=== PATIENT | female | born 1945 | race Caucasian/White ===

== ENCOUNTER 2016-11-10 17:27 | Observation (INO) ==
[2016-11-10] MEDS ORDERED: 0.9 % Sodium Chloride 1,000 ML IVC ONE (18:19)
--- NOTE | 2016-11-10 18:47 | Emergency Department Note ---
Addendum entered and electronically signed by Alec Fleming DO 11/10/16 18: 59: EKG shows sinus rhythm with occasional PVCs. Patient has ventricular is 64 bpm. MN interval 166. QRS 87. QTC 465. Patient has nonspecific elevations at V2 and V3. No previous EKG for comparison at this time. No specific T-wave changes. Original Note: Disposition Clinical Impression: Near syncope, Weakness Disposition: Still a Patient Condition: Good Referrals: Camille Joiner MD [Primary Care Provider] - Dizziness HPI - General Chief Complaint: ED Dizziness Stated Complaint: Dizziness/weakness Time Seen by Provider: 11/10/16 17:50 Source: patient Limitations: no limitations Nursing Notes Reviewed: Yes Vital Signs Reviewed: Yes - History of Present Illness HPI Narrative: Patient here for evaluation of dizziness and weakness. Patient states this afternoon she felt like she was going to pass out with her vision going black and white in her legs getting weak. Patient states she was recently admitted to [facility] and then further acknowledged that she had been admitted to [facility]. Admission to [facility] was 3 weeks ago and was for pneumonia and dehydration per patient. Admission to [facility] was for dizziness and weakness however she states that they did not do anything and has limited insight into this visit. Records requested. - Related Data Home Medications Medication Instructions Recorded Confirmed Albuterol Neb [Proventil Neb] 2.5 mg IH Q6H PRN 11/10/16 11/10/16 Albuterol Sulfate [Albuterol 1 puff IH Q6H PRN 11/10/16 11/10/16 Inhaler] Calcium Carbonate/Vitamin D3 1 each PO DAILY 11/10/16 11/10/16 [Calcium 600-Vit D3 400 Tablet] Cetirizine HCl [Zyrtec] 10 mg PO DAILY 11/10/16 11/10/16 Insulin ASPART [NovoLOG] 0 unit SQ ACHS 11/10/16 11/10/16 Insulin Degludec [Tresiba 80 unit SQ DAILY 11/10/16 11/10/16 Flextouch U-200] Insulin Glargine,Hum.rec.anlog 40 unit SQ HS 11/10/16 11/10/16 [Lantus Solostar] Isosorbide MONOnitrate (24 HR) 15 mg PO QAM 11/10/16 11/10/16 [Imdur] Levothyroxine [Synthroid] 25 mcg PO QAM 11/10/16 11/10/16 Lisinopril [Zestril] 40 mg PO DAILY 11/10/16 11/10/16 Magnesium Oxide [Mag-Ox] 400 mg PO BID 11/10/16 11/10/16 Nitroglycerin [Nitrostat] 0.4 mg SL Q5M PRN 11/10/16 11/10/16 Omeprazole [PriLOSEC] 20 mg PO DAILY 11/10/16 11/10/16 Ondansetron HCl [Zofran] 4 mg PO Q8H PRN 11/10/16 11/10/16 Polyethylene Glycol 3350 17 gm PO DAILY PRN 11/10/16 11/10/16 [Smoothlax] Pravastatin Sodium [Pravachol] 20 mg PO QPM 11/10/16 11/10/16 Sotalol [Betapace] 80 mg PO Q12HR 11/10/16 11/10/16 Tizanidine HCl 4 mg PO 11/10/16 Tramadol HCl [Ultram] 100 mg PO Q6H PRN 11/10/16 11/10/16 Trazodone HCl 100 mg PO HS 11/10/16 11/10/16 Triamcinolone Acet 0.1% CRM 1 appl TP BID 11/10/16 11/10/16 [Kenalog] Ursodiol [Radha Forte] 500 mg PO BID 11/10/16 11/10/16 Allergies Allergy/AdvReac Type Severity Reaction Status Date / Time amlodipine [From Norvasc] Allergy Anaphylaxis Verified 11/10/16 17:36 Amoxicillin Allergy Anaphylaxis Verified 11/10/16 17:32 Erythromycin Base Allergy Anaphylaxis Verified 11/10/16 17:36 liraglutide [From Victoza] Allergy Swelling Verified 11/10/16 17:36 of Lip/Tongue/Throat Penicillins Allergy Anaphylaxis Verified 11/10/16 17:32 pioglitazone [From Actos] Allergy Anaphylaxis Verified 11/10/16 17:36 Rosiglitazone [From Avandia] Allergy Swelling Verified 11/10/16 17:36 of Lip/Tongue/Throat venlafaxine [From Effexor] Allergy Swelling Verified 11/10/16 17:36 of Lip/Tongue/Throat morphine AdvReac Vomiting Verified 11/10/16 17:36 sulfamethoxazole AdvReac Itching Verified 11/10/16 17:36 [From Bactrim] trimethoprim [From Bactrim] AdvReac Itching Verified 11/10/16 17:36 Constitutional: Reports: weakness. Denies: fever, chills Cardiovascular: Denies: chest pain Respiratory: Reports: cough (Describes clear sputum), dyspnea (Occasionally) Gastrointestinal: Reports: nausea. Denies: abdominal pain, vomiting Genitourinary: Denies: urgency, dysuria, frequency Musculoskeletal: Reports: other (Swelling of the lower extremities). Denies: back pain, neck pain Integumentary: Denies: rash, abrasion, lesions Neurological: Denies: headache Endocrine: Reports: fatigue Past Medical History - Past Medical History Medical history: Reports: atrial fibrillation, cirrhosis, diabetes, GERD, hyperlipidemia, hypertension, thyroid disease Psychiatric history: Reports: no psych history - Social History Smoking Status: Never smoker Smokeless Tobacco Status: No Alcohol use: Reports: none Drug use: Reports: none Physical Exam Mental slowness - General Limitations: no limitations General appearance: alert, in no apparent distress - Head Head exam: atraumatic, normocephalic - Eye Eye exam: Present: normal appearance - ENT ENT exam: normal exam, normal oropharynx - Neck Neck exam: Present: normal inspection, full ROM - Chest Chest inspection: Present: normal inspection, symmetric chest wall rise. Absent : tenderness - Respiratory Respiratory exam: Present: normal lung sounds bilaterally, other (Rales bilaterally). Absent: respiratory distress - Cardiovascular Cardiovascular exam: Present: regular rate, normal rhythm - Abdominal Exam Abdominal exam: Present: soft, Non-Tender - Extremities Exam Extremities exam: Present: normal inspection, pedal edema (+3 bilaterally) - Back Exam Back exam: Present: normal inspection. Absent: CVA tenderness (R), CVA tenderness (L) - Neurological Exam Neurological exam: Present: alert, oriented X3, CN II-XII intact. Absent: motor sensory deficit - Psychiatric Psychiatric exam: Present: flat affect - Skin Skin exam: Present: warm, dry, other (Chronic lower extremity changes) Course Course Narrative: Patient will be evaluated for weakness and near syncope. Patient does have a flat affect and concern for hypothyroid features. Thyroid will be evaluated. Patient will be signed out to Dr. Young and Dr. Al. Vital Signs Temperature 97.6 F 11/10/16 17:36 Pulse Rate 65 11/10/16 17:36 Respiratory Rate 16 11/10/16 17:36 Blood Pressure 79/53 11/10/16 17:36 O2 Sat by Pulse Oximetry 92 11/10/16 17:36 Temperature 97.6 F 11/10/16 17:36 Pulse Rate 61 11/10/16 18:45 Respiratory Rate 16 11/10/16 18:45 Blood Pressure 142/47 11/10/16 18:45 O2 Sat by Pulse Oximetry 96 11/10/16 18:45 Oxygen Delivery Oxygen Delivery Nasal Cannula Dizziness - Lab Data Result diagrams: 11/10/16 17:55 11/10/16 17:55 Lab Results 11/10/16 11/10/16 11/10/16 Range/Units 17:55 17:55 17:55 WBC 4.6 (4.3-11.1) K/mcL RBC 4.36 (3.82-4.97) M/mcL Hgb 11.7 (11.5-15.4) g/dL Hct 36.7 (35.3-44.9) % MCV 84.2 (83.0-100.0) fL MCH 26.8 L (28.0-33.3) pg MCHC 31.9 (31.6-35.5) g/dL RDW 17.2 H (11.5-14.5) % Plt Count 138 L (140-400) K/mcL MPV 11.2 (9.4-12.4) fL Immature Gran % 0.4 (0-4) % Seg Neutrophils % 50.7 % Lymphocytes % 32.6 % Monocytes % 14.7 % Eosinophils % 0.9 % Basophils % 0.7 % Neutrophils # 2.3 (1.6-8.9) K/mcL Lymphocytes # 1.5 (0.6-4.6) K/mcL Monocytes # 0.7 (0.0-1.3) K/mcL Eosinophils # 0.0 (0.0-0.6) K/mcL Basophils # 0.0 (0.0-0.2) K/mcL Sodium 136 (136-145) mEq/L Potassium 4.1 (3.5-4.5) mEq/L Chloride 103 (98-109) mEq/L Carbon Dioxide 25 (19-29) mEq/L BUN 18 (7-20) mg/dL Creatinine 1.26 H (0.57-1.11) mg/dL Est GFR ( Amer) 51 L (> 60) Est GFR (Non-Af Amer) 42 L (> 60) BUN/Creatinine Ratio 14 (6-26) Glucose 280 H (70-99) mg/dL Calculated Osmolality 294 (280-300) Calcium 9.7 (8.6-10.8) mg/dL Total Bilirubin (0.2-1.2) mg/dL Direct Bilirubin (0.0-0.5) mg/dL Indirect Bilirubin (0.0-1.2) mg/dL AST (5-34) Units/L ALT (0-55) Units/L Alkaline Phosphatase (38-126) Units/L Ammonia (18-72) mcmol/L Troponin I 0.00 (0-0.03) ng/mL B-Natriuretic Peptide (0-100) pg/mL Serum Total Protein (6.0-8.3) g/dL Albumin (3.5-5.0) g/dL Globulin (2.4-3.5) g/dL Albumin/Globulin Ratio (1.1-2.2) TSH 2.762 (0.350-4.840) mcIU/mL 11/10/16 11/10/16 11/10/16 Range/Units 17:55 19:55 19:55 WBC (4.3-11.1) K/mcL RBC (3.82-4.97) M/mcL Hgb (11.5-15.4) g/dL Hct (35.3-44.9) % MCV (83.0-100.0) fL MCH (28.0-33.3) pg MCHC (31.6-35.5) g/dL RDW (11.5-14.5) % Plt Count (140-400) K/mcL MPV (9.4-12.4) fL Immature Gran % (0-4) % Seg Neutrophils % % Lymphocytes % % Monocytes % % Eosinophils % % Basophils % % Neutrophils # (1.6-8.9) K/mcL Lymphocytes # (0.6-4.6) K/mcL Monocytes # (0.0-1.3) K/mcL Eosinophils # (0.0-0.6) K/mcL Basophils # (0.0-0.2) K/mcL Sodium (136-145) mEq/L Potassium (3.5-4.5) mEq/L Chloride (98-109) mEq/L Carbon Dioxide (19-29) mEq/L BUN (7-20) mg/dL Creatinine (0.57-1.11) mg/dL Est GFR ( Amer) (> 60) Est GFR (Non-Af Amer) (> 60) BUN/Creatinine Ratio (6-26) Glucose (70-99) mg/dL Calculated Osmolality (280-300) Calcium (8.6-10.8) mg/dL Total Bilirubin 0.5 (0.2-1.2) mg/dL Direct Bilirubin 0.3 (0.0-0.5) mg/dL Indirect Bilirubin 0.2 (0.0-1.2) mg/dL AST 27 (5-34) Units/L ALT 18 (0-55) Units/L Alkaline Phosphatase 128 H (38-126) Units/L Ammonia 38 (18-72) mcmol/L Troponin I (0-0.03) ng/mL B-Natriuretic Peptide 122 H (0-100) pg/mL Serum Total Protein 7.2 (6.0-8.3) g/dL Albumin 2.7 L (3.5-5.0) g/dL Globulin 4.5 H (2.4-3.5) g/dL Albumin/Globulin Ratio 0.6 L (1.1-2.2) TSH (0.350-4.840) mcIU/mL Attestation Statement - Attestation Attestation: I, Damaso Al, examined this patient and my medical decision-making was reviewed with the TOBACCO DIPPER/PA/Advanced Practice Nurse/Resident Physician. I agree with the documented findings, disposition and treatment plan as described except to the extent set forth below. 71-year-old female presents with concerns of weakness and lightheadedness over the past 2 weeks. Patient stated her symptoms started acutely 4 hours prior to arrival however family states patient has had blood pressures in the 80s over the past 2 weeks and was admitted at [facility] last week for similar symptoms. Family reported slurred speech yesterday but denies focal neurologic deficits. Family and patient denies recent medication changes. Patient does have a history of thyroid disease and takes thyroid replacement. Patient was hypotensive on her initial arrival. Lungs were clear to auscultation bilaterally. Patient had no tenderness to palpation of her abdomen. No history of dysuria. She had a mild headache in the emergency department denies fever, chills, nausea, vomiting. No recent trauma. Records from [facility] will be obtained. Patient will be evaluated for weakness and possible ACS versus medication reaction. Patient will likely be admitted to the hospital. Records were obtained from [facility] report similar presentation today. Patient had initial presentation with blood pressure at that time of 72/62 which improved after IV fluids. Patient had a previous hemoglobin of 10.9, with blood cell count of 5.8, creatinine 1.13, negative troponin, magnesium level I.6. Discharge summary from [facility] shows diagnosis of near syncope with most likely etiology of hypovolemic state due to overdiuresis and under hydration which was evident by her quick response to IV fluids at the time. Carotid artery study showed 40-59% stenosis of the left ICA. BP at discharge was 139/76. Blood cultures were negative after 5 days. Urine culture was negative after 48 hours
[2016-11-10 19:15] LABS: Basophils % 0.7 %; Eosinophils % 0.9 %; Hematocrit 36.7 % (35.3-44.9); Hemoglobin 11.7 g/dL (11.5-15.4); Immature Granulocytes % 0.4 % (0-4); Lymphocytes # 1.5 K/mcL (0.6-4.6); Lymphocytes % 32.6 %; Mean Corpuscular HGB Conc 31.9 g/dL (31.6-35.5); Mean Corpuscular Hemoglobin 26.8 pg (28.0-33.3); Mean Corpuscular Volume 84.2 fL (83.0-100.0); Mean Platelet Volume 11.2 fL (9.4-12.4); Monocytes # 0.7 K/mcL (0.0-1.3); Monocytes % 14.7 %; Neutrophils # 2.3 K/mcL (1.6-8.9); Platelet Count 138 K/mcL (140-400); Red Blood Count 4.36 M/mcL (3.82-4.97); Red Cell Distribution Width 17.2 % (11.5-14.5); Segmented Neutrophils % 50.7 %
[2016-11-10 19:23] LABS: Calcium 9.7 mg/dL (8.6-10.8); Potassium 4.1 mEq/L (3.5-4.5)
[2016-11-10 19:45] LABS: Thyroid Stimulating Hormone 2.762 mcIU/mL (0.350-4.840)
[2016-11-10 20:17] LABS: Albumin 2.7 g/dL (3.5-5.0); Albumin/Globulin Ratio 0.6 (1.1-2.2); Bilirubin,Direct 0.3 mg/dL (0.0-0.5); Bilirubin,Indirect 0.2 mg/dL (0.0-1.2); Bilirubin,Total 0.5 mg/dL (0.2-1.2); Globulin 4.5 g/dL (2.4-3.5); Total Protein 7.2 g/dL (6.0-8.3)
[2016-11-10 20:34] LABS: Bilirubin,Urine Negative (Negative); Blood,Urine Negative (Negative); Clarity,Urine Clear (Clear); Color,Urine Yellow (Yellow); Glucose,Urine (UA) >=1000 mg/dL (Normal); Ketones,Urine Negative (Negative); Leukocyte Esterase,Urine Negative (Negative); Nitrite,Urine Negative (Negative); Protein,Urine 30 mg/dL (Neg-Trace); Specific Gravity,Urine 1.027 (1.010-1.025); Urobilinogen,Urine Normal (Normal)
[2016-11-10 20:35] LABS: Bacteria,Urine None Seen per hpf (None-Few); RBC,Urine 0-3 per hpf (0-3); Squamous Epithelial Cell,Urine Many per lpf (None-Few)
--- NOTE | 2016-11-10 21:05 | Emergency Department Note ---
Disposition Clinical Impression: Near syncope, Weakness Disposition: Admitted As Inpatient Condition: Good Time of Disposition: 21:05 General Adult HPI - General Chief complaint: ED Dizziness Stated complaint: Dizziness/weakness Time Seen by Provider: 11/10/16 17:50 Source: patient Limitations: no limitations - History of Present Illness Pain Scale: 3 - Related Data Home Medications Medication Instructions Recorded Confirmed Albuterol Neb [Proventil Neb] 2.5 mg IH Q6H PRN 11/10/16 11/10/16 Albuterol Sulfate [Albuterol 1 puff IH Q6H PRN 11/10/16 11/10/16 Inhaler] Calcium Carbonate/Vitamin D3 1 each PO DAILY 11/10/16 11/10/16 [Calcium 600-Vit D3 400 Tablet] Cetirizine HCl [Zyrtec] 10 mg PO DAILY 11/10/16 11/10/16 Insulin ASPART [NovoLOG] 0 unit SQ ACHS 11/10/16 11/10/16 Insulin Degludec [Tresiba 80 unit SQ DAILY 11/10/16 11/10/16 Flextouch U-200] Insulin Glargine,Hum.rec.anlog 40 unit SQ HS 11/10/16 11/10/16 [Lantus Solostar] Levothyroxine [Synthroid] 25 mcg PO QAM 11/10/16 11/10/16 Magnesium Oxide [Mag-Ox] 400 mg PO BID 11/10/16 11/10/16 Nitroglycerin [Nitrostat] 0.4 mg SL Q5M PRN 11/10/16 11/10/16 Omeprazole [PriLOSEC] 20 mg PO DAILY 11/10/16 11/10/16 Ondansetron HCl [Zofran] 4 mg PO Q8H PRN 11/10/16 11/10/16 Polyethylene Glycol 3350 17 gm PO DAILY PRN 11/10/16 11/10/16 [Smoothlax] Pravastatin Sodium [Pravachol] 20 mg PO QPM 11/10/16 11/10/16 Sotalol [Betapace] 80 mg PO Q12HR 11/10/16 11/10/16 Trazodone HCl 100 mg PO HS 11/10/16 11/10/16 Triamcinolone Acet 0.1% CRM 1 appl TP BID 11/10/16 11/10/16 [Kenalog] Ursodiol [Radha Forte] 500 mg PO BID 11/10/16 11/10/16 Allergies Allergy/AdvReac Type Severity Reaction Status Date / Time amlodipine [From Norvasc] Allergy Anaphylaxis Verified 11/10/16 17:36 Amoxicillin Allergy Anaphylaxis Verified 11/10/16 17:32 Erythromycin Base Allergy Anaphylaxis Verified 11/10/16 17:36 liraglutide [From Victoza] Allergy Swelling Verified 11/10/16 17:36 of Lip/Tongue/Throat Penicillins Allergy Anaphylaxis Verified 11/10/16 17:32 pioglitazone [From Actos] Allergy Anaphylaxis Verified 11/10/16 17:36 Rosiglitazone [From Avandia] Allergy Swelling Verified 11/10/16 17:36 of Lip/Tongue/Throat venlafaxine [From Effexor] Allergy Swelling Verified 11/10/16 17:36 of Lip/Tongue/Throat morphine AdvReac Vomiting Verified 11/10/16 17:36 sulfamethoxazole AdvReac Itching Verified 11/10/16 17:36 [From Bactrim] trimethoprim [From Bactrim] AdvReac Itching Verified 11/10/16 17:36 Constitutional: Reports: weakness. Denies: fever, chills Cardiovascular: Denies: chest pain Respiratory: Reports: cough (Describes clear sputum), dyspnea (Occasionally) Gastrointestinal: Reports: nausea. Denies: abdominal pain, vomiting Genitourinary: Denies: urgency, dysuria, frequency Musculoskeletal: Reports: other (Swelling of the lower extremities). Denies: back pain, neck pain Integumentary: Denies: rash, abrasion, lesions Neurological: Denies: headache Endocrine: Reports: fatigue Past Medical History - Past Medical History Medical history: Reports: atrial fibrillation, cirrhosis, diabetes, GERD, hyperlipidemia, hypertension, thyroid disease Psychiatric history: Reports: no psych history - Social History Smoking Status: Never smoker Smokeless Tobacco Status: No Alcohol use: Reports: none Drug use: Reports: none Physical Exam - General Limitations: no limitations General appearance: alert, in no apparent distress Course - Reevaluation(s) Reevaluation #1: Patient taken in signout from Dr. Fleming. Blood pressure improved after 1 L of normal saline. It has been running 100 systolic for the last few readings. We will start her on maintenance fluids. She still feels somewhat lightheaded, but is improved from arrival. No signs of infection. No renal failure. CT of the head, chest x-ray were normal. Urinalysis were normal. No signs of ischemia on EKG. Records obtained from [facility]. Patient accepted to hospitalist service by Dr. Burdick for near syncope obs. Time: 21:05 Vital Signs Temperature 97.6 F 11/10/16 17:36 Pulse Rate 65 11/10/16 17:36 Respiratory Rate 16 11/10/16 17:36 Blood Pressure 79/53 11/10/16 17:36 O2 Sat by Pulse Oximetry 92 11/10/16 17:36 Temperature 98.0 F 11/12/16 07:15 Pulse Rate 63 11/12/16 07:15 Respiratory Rate 17 11/12/16 07:15 Blood Pressure 105/68 11/12/16 07:15 O2 Sat by Pulse Oximetry 94 11/12/16 07:15 Oxygen Delivery Oxygen Delivery Nasal Cannula Medical Decision Making - Lab Data Result diagrams: 11/12/16 03:43 11/12/16 03:43 Lab Results 11/10/16 11/10/16 11/10/16 Range/Units 17:55 17:55 17:55 WBC 4.6 (4.3-11.1) K/mcL RBC 4.36 (3.82-4.97) M/mcL Hgb 11.7 (11.5-15.4) g/dL Hct 36.7 (35.3-44.9) % MCV 84.2 (83.0-100.0) fL MCH 26.8 L (28.0-33.3) pg MCHC 31.9 (31.6-35.5) g/dL RDW 17.2 H (11.5-14.5) % Plt Count 138 L (140-400) K/mcL MPV 11.2 (9.4-12.4) fL Immature Gran % 0.4 (0-4) % Seg Neutrophils % 50.7 % Lymphocytes % 32.6 % Monocytes % 14.7 % Eosinophils % 0.9 % Basophils % 0.7 % Neutrophils # 2.3 (1.6-8.9) K/mcL Lymphocytes # 1.5 (0.6-4.6) K/mcL Monocytes # 0.7 (0.0-1.3) K/mcL Eosinophils # 0.0 (0.0-0.6) K/mcL Basophils # 0.0 (0.0-0.2) K/mcL Sodium 136 (136-145) mEq/L Potassium 4.1 (3.5-4.5) mEq/L Chloride 103 (98-109) mEq/L Carbon Dioxide 25 (19-29) mEq/L BUN 18 (7-20) mg/dL Creatinine 1.26 H (0.57-1.11) mg/dL Est GFR ( Amer) 51 L (> 60) Est GFR (Non-Af Amer) 42 L (> 60) BUN/Creatinine Ratio 14 (6-26) Glucose 280 H (70-99) mg/dL Calculated Osmolality 294 (280-300) Calcium 9.7 (8.6-10.8) mg/dL Total Bilirubin (0.2-1.2) mg/dL Direct Bilirubin (0.0-0.5) mg/dL Indirect Bilirubin (0.0-1.2) mg/dL AST (5-34) Units/L ALT (0-55) Units/L Alkaline Phosphatase (38-126) Units/L Ammonia (18-72) mcmol/L Troponin I 0.00 (0-0.03) ng/mL B-Natriuretic Peptide (0-100) pg/mL Serum Total Protein (6.0-8.3) g/dL Albumin (3.5-5.0) g/dL Globulin (2.4-3.5) g/dL Albumin/Globulin Ratio (1.1-2.2) TSH 2.762 (0.350-4.840) mcIU/mL Urine Color (Yellow) Urine Clarity (Clear) Urine pH (5.0-8.0) pH Units Ur Specific [place] (1.010-1.025) Urine Protein (Neg-Trace) mg/dL Urine Glucose (UA) (Normal) mg/dL Urine Ketones (Negative) mg/dL Urine Blood (Negative) Urine Nitrite (Negative) Urine Bilirubin (Negative) Urine Urobilinogen (Normal) mg/dL Ur Leukocyte Esterase (Negative) Urine Microscopic RBC (0-3) per hpf Urine Microscopic WBC (0-3) per hpf Ur Squamous Epith Cells (None-Few) per lpf Urine Bacteria (None-Few) per hpf Hyaline Casts Ur Culture Indicated? (NO) 11/10/16 11/10/16 11/10/16 Range/Units 17:55 19:40 19:55 WBC (4.3-11.1) K/mcL RBC (3.82-4.97) M/mcL Hgb (11.5-15.4) g/dL Hct (35.3-44.9) % MCV (83.0-100.0) fL MCH (28.0-33.3) pg MCHC (31.6-35.5) g/dL RDW (11.5-14.5) % Plt Count (140-400) K/mcL MPV (9.4-12.4) fL Immature Gran % (0-4) % Seg Neutrophils % % Lymphocytes % % Monocytes % % Eosinophils % % Basophils % % Neutrophils # (1.6-8.9) K/mcL Lymphocytes # (0.6-4.6) K/mcL Monocytes # (0.0-1.3) K/mcL Eosinophils # (0.0-0.6) K/mcL Basophils # (0.0-0.2) K/mcL Sodium (136-145) mEq/L Potassium (3.5-4.5) mEq/L Chloride (98-109) mEq/L Carbon Dioxide (19-29) mEq/L BUN (7-20) mg/dL Creatinine (0.57-1.11) mg/dL Est GFR ( Amer) (> 60) Est GFR (Non-Af Amer) (> 60) BUN/Creatinine Ratio (6-26) Glucose (70-99) mg/dL Calculated Osmolality (280-300) Calcium (8.6-10.8) mg/dL Total Bilirubin 0.5 (0.2-1.2) mg/dL Direct Bilirubin 0.3 (0.0-0.5) mg/dL Indirect Bilirubin 0.2 (0.0-1.2) mg/dL AST 27 (5-34) Units/L ALT 18 (0-55) Units/L Alkaline Phosphatase 128 H (38-126) Units/L Ammonia (18-72) mcmol/L Troponin I (0-0.03) ng/mL B-Natriuretic Peptide 122 H (0-100) pg/mL Serum Total Protein 7.2 (6.0-8.3) g/dL Albumin 2.7 L (3.5-5.0) g/dL Globulin 4.5 H (2.4-3.5) g/dL Albumin/Globulin Ratio 0.6 L (1.1-2.2) TSH (0.350-4.840) mcIU/mL Urine Color Yellow (Yellow) Urine Clarity Clear (Clear) Urine pH 6.0 (5.0-8.0) pH Units Ur Specific [place] 1.027 H (1.010-1.025) Urine Protein 30 H (Neg-Trace) mg/dL Urine Glucose (UA) >=1000 H (Normal) mg/dL Urine Ketones Negative (Negative) mg/dL Urine Blood Negative (Negative) Urine Nitrite Negative (Negative) Urine Bilirubin Negative (Negative) Urine Urobilinogen Normal (Normal) mg/dL Ur Leukocyte Esterase Negative (Negative) Urine Microscopic RBC 0-3 (0-3) per hpf Urine Microscopic WBC 5-15 H (0-3) per hpf Ur Squamous Epith Cells Many H (None-Few) per lpf Urine Bacteria None Seen (None-Few) per hpf Hyaline Casts Test Not Performed Ur Culture Indicated? YES A (NO) 11/10/16 Range/Units 19:55 WBC (4.3-11.1) K/mcL RBC (3.82-4.97) M/mcL Hgb (11.5-15.4) g/dL Hct (35.3-44.9) % MCV (83.0-100.0) fL MCH (28.0-33.3) pg MCHC (31.6-35.5) g/dL RDW (11.5-14.5) % Plt Count (140-400) K/mcL MPV (9.4-12.4) fL Immature Gran % (0-4) % Seg Neutrophils % % Lymphocytes % % Monocytes % % Eosinophils % % Basophils % % Neutrophils # (1.6-8.9) K/mcL Lymphocytes # (0.6-4.6) K/mcL Monocytes # (0.0-1.3) K/mcL Eosinophils # (0.0-0.6) K/mcL Basophils # (0.0-0.2) K/mcL Sodium (136-145) mEq/L Potassium (3.5-4.5) mEq/L Chloride (98-109) mEq/L Carbon Dioxide (19-29) mEq/L BUN (7-20) mg/dL Creatinine (0.57-1.11) mg/dL Est GFR ( Amer) (> 60) Est GFR (Non-Af Amer) (> 60) BUN/Creatinine Ratio (6-26) Glucose (70-99) mg/dL Calculated Osmolality (280-300) Calcium (8.6-10.8) mg/dL Total Bilirubin (0.2-1.2) mg/dL Direct Bilirubin (0.0-0.5) mg/dL Indirect Bilirubin (0.0-1.2) mg/dL AST (5-34) Units/L ALT (0-55) Units/L Alkaline Phosphatase (38-126) Units/L Ammonia 38 (18-72) mcmol/L Troponin I (0-0.03) ng/mL B-Natriuretic Peptide (0-100) pg/mL Serum Total Protein (6.0-8.3) g/dL Albumin (3.5-5.0) g/dL Globulin (2.4-3.5) g/dL Albumin/Globulin Ratio (1.1-2.2) TSH (0.350-4.840) mcIU/mL Urine Color (Yellow) Urine Clarity (Clear) Urine pH (5.0-8.0) pH Units Ur Specific [place] (1.010-1.025) Urine Protein (Neg-Trace) mg/dL Urine Glucose (UA) (Normal) mg/dL Urine Ketones (Negative) mg/dL Urine Blood (Negative) Urine Nitrite (Negative) Urine Bilirubin (Negative) Urine Urobilinogen (Normal) mg/dL Ur Leukocyte Esterase (Negative) Urine Microscopic RBC (0-3) per hpf Urine Microscopic WBC (0-3) per hpf Ur Squamous Epith Cells (None-Few) per lpf Urine Bacteria (None-Few) per hpf Hyaline Casts Ur Culture Indicated? (NO) Attestation Statement - Attestation Attestation: I examined this patient and my medical decision-making was reviewed with the [employer] STORE MANAGER/PA/Advanced Practice Nurse/Resident Physician. I agree with the documented findings, disposition and treatment plan as described except to the extent set forth below. 71 yo female received in signout. Pt blood pressure improved after IVFs. Pt admitted for near syncope.
[2016-11-11] MEDS ORDERED: Naloxone 0.4 MG/ML INJ IVP PRN (00:21)
[2016-11-11] MEDS ORDERED: Albuterol 2.5 MG/3 ML NEBULIZER IH PRN (00:22)
--- NOTE | 2016-11-11 00:33 | Internal Med History&Physical ---
<Michael Medrano - Last Filed: 11/11/16 00:40> Date of Encounter: 11/11/16 Time of Encounter: 00:30 Assessment and Plan (1) Dehydration Current visit: Yes Status: Acute Blood pressure was 80s over 50s on presentation, responded well to 1 L of fluid. Patient's symptoms are resolved this time. Orthostatics were negative however there were performed after the patient received a liter bolus. Likely medication related as well as related to significant glucosuria. We will hold the patient's antihypertensives at this time and continue to monitor the patient 's blood pressure and symptoms.. (2) Type 2 diabetes mellitus Current visit: Yes Status: Acute Patient's blood sugar was significantly elevated on presentation and patient had greater than 1000 glucose in her urine. This could be contributing to her dehydration. We will check an A1c in the morning. Patient has been placed on twice a day Levemir which she takes at home as well as 10 units with meals and a high-dose sliding scale. Adjust insulin regimen based on blood sugars. Qualifiers: Diabetes mellitus complication status: with hyperglycemia Diabetes mellitus buttermaker helper insulin use: with prison use Qualified Code(s): E11.65 - Type 2 diabetes mellitus with hyperglycemia; Z79.4 - retirement (current) use of insulin (3) Hypothyroidism Current visit: Yes Status: Acute Continue Synthroid. Qualifiers: Hypothyroidism type: unspecified Qualified Code(s): E03.9 - Hypothyroidism , unspecified (4) Hypertension Current visit: Yes Status: Acute Patient reports chronic hypertension however patient's blood pressure was low on presentation. We will hold antihypertensives as discussed above. Qualifiers: Hypertension type: essential hypertension Qualified Code(s): I10 - Essential (primary) hypertension (5) Hyperlipidemia Current visit: Yes Status: Acute Continue statin. Qualifiers: Hyperlipidemia type: unspecified Qualified Code(s): E78.5 - Hyperlipidemia , unspecified (6) Atrial fibrillation Current visit: Yes Status: Acute Patient is currently rhythm controlled with sotalol. EKG reveals normal sinus rhythm with a rate in the 70s. 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 Patient is not on any anticoagulation and she states this is due to recurrent nosebleeds. Qualifiers: Atrial fibrillation type: unspecified Qualified Code(s): I48.91 - Unspecified atrial fibrillation (7) DVT prophylaxis Current visit: Yes Status: Acute Patient is low risk for DVT, DVT prophylaxis is not indicated at this time. Internal Medicine - H&P: HPI Chief complaint: Dizziness/presyncope Admitted From: Emergency Dept Plans for Post Hospital Care: Home History of present illness: Ms. Mcgovern is a 71 year old female with history of hypertension, type 2 diabetes presents with dizziness and presyncopal symptoms. Patient states that she developed dizziness around 1 PM this afternoon. She describes this as a lightheadedness. She states a lot of the symptoms she had episodes where things went dark and she felt like she was given a pass out. The patient states that she never did actually pass out. Patient states that she had similar symptoms 4 weeks ago for which she went to [facility] and was admitted for hypotension and dehydration. Patient states that her Lasix was stopped at that time. Since that admission the patient has complained of generalized weakness but did not have dizziness or presyncopal symptoms until today. Patient states that she has lymphedema and her legs are chronically swollen. She denies any recent fever, chills, chest pain, shortness of breath, abdominal pain, nausea, vomiting, diarrhea. Past Med Surg Social Fam HX - Past Medical History Medical history: atrial fibrillation, cirrhosis, diabetes, GERD, hyperlipidemia , hypertension, thyroid disease Psychiatric history: no psych history - Past Surgical History Surgical History: cholecystectomy, other - Social History Smoking Status: Never smoker Smokeless Tobacco Status: No Alcohol use: none Drug use: none - Family History Mother Adopted: [place]: ELLIS Family Member Ethnicity: Non- Living Status: Age at : 89 Cause of : HEART PROBLEMS Hx Family Cardiac Disorders: Yes Hx Family Respiratory Disorders: No Hx Family Cancer: No Hx Family GI Disorders: Yes Hx Family Genitourinary Disorders: No Hx Family Endocrine Disorder: No Hx Family Musculoskeletal Disorders: No Hx Family Neuromuscular Disorders: No Hx Family Neurologic Disorders: No Hx Family HEENT Disorders: No Hx Family Autoimmune Disorders: No Hx Family Reproductive Disorders: No Hx Family Psychosocial Disorders: No Hx Family Medical Disorders: No Internal Medicine - H&P: Meds Albuterol Neb [Proventil Neb] 2.5 mg IH Q6H PRN 11/10/16 [History] Albuterol Sulfate [Albuterol Inhaler] 1 puff IH Q6H PRN 11/10/16 [History] Calcium Carbonate/Vitamin D3 [Calcium 600-Vit D3 400 Tablet] 1 each PO DAILY [History] Cetirizine HCl [Zyrtec] 10 mg PO DAILY 11/10/16 [History] Insulin ASPART [NovoLOG] 0 unit SQ ACHS 11/10/16 [History] Insulin Degludec [Tresiba Flextouch U-200] 80 unit SQ DAILY 11/10/16 [History] Insulin Glargine,Hum.rec.anlog [Lantus Solostar] 40 unit SQ HS 11/10/16 [History ] Isosorbide MONOnitrate (24 HR) [Imdur] 15 mg PO QAM 11/10/16 [History] Levothyroxine [Synthroid] 25 mcg PO QAM 11/10/16 [History] Lisinopril [Zestril] 40 mg PO DAILY 11/10/16 [History] Magnesium Oxide [Mag-Ox] 400 mg PO BID 11/10/16 [History] Nitroglycerin [Nitrostat] 0.4 mg SL Q5M PRN 11/10/16 [History] Omeprazole [PriLOSEC] 20 mg PO DAILY 11/10/16 [History] Ondansetron HCl [Zofran] 4 mg PO Q8H PRN 11/10/16 [History] Polyethylene Glycol 3350 [Smoothlax] 17 gm PO DAILY PRN 11/10/16 [History] Pravastatin Sodium [Pravachol] 20 mg PO QPM 11/10/16 [History] Sotalol [Betapace] 80 mg PO Q12HR 11/10/16 [History] Tizanidine HCl 4 mg PO 11/10/16 [History] Tramadol HCl [Ultram] 100 mg PO Q6H PRN 11/10/16 [History] Trazodone HCl 100 mg PO HS 11/10/16 [History] Triamcinolone Acet 0.1% CRM [Kenalog] 1 appl TP BID 11/10/16 [History] Ursodiol [Radha Forte] 500 mg PO BID 11/10/16 [History] Allergies amlodipine [From Norvasc] Allergy (Verified 11/10/16 17:36) Anaphylaxis Amoxicillin Allergy (Verified 11/10/16 17:32) Anaphylaxis Erythromycin Base Allergy (Verified 11/10/16 17:36) Anaphylaxis liraglutide [From Victoza] Allergy (Verified 11/10/16 17:36) Swelling of Lip/Tongue/Throat Penicillins Allergy (Verified 11/10/16 17:32) Anaphylaxis pioglitazone [From Actos] Allergy (Verified 11/10/16 17:36) Anaphylaxis Rosiglitazone [From Avandia] Allergy (Verified 11/10/16 17:36) Swelling of Lip/Tongue/Throat venlafaxine [From Effexor] Allergy (Verified 11/10/16 17:36) Swelling of Lip/Tongue/Throat morphine Adverse Reaction (Verified 11/10/16 17:36) Vomiting sulfamethoxazole [From Bactrim] Adverse Reaction (Verified 11/10/16 17:36) Itching trimethoprim [From Bactrim] Adverse Reaction (Verified 11/10/16 17:36) Itching All Systems PM: A 10-system review of systems was performed and is negative for pertinent findings except as documented above in the HPI. - Constitutional Constitutional: weakness, no chills, no fever(s) - EENT Eyes: no blurry vision, no change in vision Nose, mouth and throat: no sinus pain, no sinus pressure, no sore throat - Cardiovascular Cardiovascular ROS IM: edema, lightheadedness (with near syncope), no chest pain , no dyspnea, no palpitations, no syncope - Respiratory Respiratory: no cough, no dyspnea, no wheezing, no chest congestion, no excessive phlegm production, no change in phlegm color - Gastrointestinal Gastrointestinal: no abdominal pain, no diarrhea, no nausea, no vomiting - Genitourinary Genitourinary: no dysuria, no hematuria - Musculoskeletal Musculoskeletal ROS IM: no numbness, no tingling - Integumentary Integumentary IM: no new lesions - Neurological Neurological ROS: disequilibrium, dizziness, no confusion, no frequent falls, no tingling, no weakness - Endocrine Endocrine IM: polydipsia, polyuria - Constitutional Vitals: Temp Pulse Resp BP Pulse Ox 98.4 F 68 15 137/79 93 11/10/16 22:42 11/11/16 00:10 11/10/16 22:42 11/11/16 00:10 11/10/16 22:42 General appearance: Present: A&O X 3, pleasant, no acute distress, obese - Head Head exam: Present: atraumatic, normal inspection, normocephalic - Eye Eye exam: Present: EOMI, PERRL - ENT ENT exam: Present: mucous membranes moist - Neck Neck exam general surgery: Absent: tenderness - Respiratory Respiratory exam: Present: CTAB. Absent: rales, rhonchi, wheezes - Cardiovascular Cardiovascular exam: Present: RRR. Absent: gallop, rubs, systolic murmur - GI/Abdominal GI/Abdominal exam: Present: normal bowel sounds, soft. Absent: distended, tenderness - Extremities Exam Extremities exam: Present: pedal edema, warm. Absent: tenderness Additional comments: Significant nonpitting edema to lower extremities bilaterally. - Neurological Exam Neurological exam: Present: alert, CN II-XII intact, oriented X3, no focal deficits Internal Med - H&P Results - Labs CBC & Chem 7: 11/10/16 17:55 11/10/16 17:55 - VTE Reasons for not Prescribing Prophylaxis: Treatment not Indicated - Low risk for VTE <Damion Vaz - Last Filed: 11/11/16 02:47> Date of Encounter: 11/11/16 Assessment and Plan (1) Hypotension Current visit: Yes Status: Acute Hypotension, which was Possibly due to medications versus volume depletion from hyperglycemia. IV fluids. Hold antihypertensive. Trend troponins. Qualifiers: Hypotension type: unspecified hypotension type Qualified Code(s): I95.9 - Hypotension, unspecified (2) Near syncope Current visit: Yes Status: Acute Presyncope: likely due to hypotension, which was Possibly due to medications versus volume depletion from hyperglycemia. IV fluids. Hold antihypertensive. Trend troponins. Internal Medicine - H&P: HPI History of present illness: Ms. Mcgovern is a 71 year old female All Systems PM: A 10-system review of systems was performed and is negative for pertinent findings except as documented above in the HPI. - Constitutional Vitals: Temp Pulse Resp BP Pulse Ox 98.4 F 68 15 137/79 93 11/10/16 22:42 11/11/16 00:10 11/10/16 22:42 11/11/16 00:10 11/10/16 22:42 Internal Med - H&P Results - Labs CBC & Chem 7: 11/10/16 17:55 11/10/16 17:55 - Attending Attestation I performed history and physical examination of the patient and discussed management with resident. I reviewed the residents note and agree with the documented findings and plan of care. 71 Y/F with h/o A fib (not on anticoagulation), lymphedema, DM on insulin, cirrhosis of liver and hypertension. She has home health nurse, who filled her medications. She felt dizziness and light headedness and felt like she is going to pass out, this afternoon. She denies any changes to medications, exposure to hot weather, excessive urination. She was hypotensive, with systolic blood pressure in the mid 70s, in the emergency department. She received 1 L of normal saline IV and her BP and symptoms improving. O/E: Not in acute distress. Lungs clear to auscultation. Cardiovascular regular rhythm. Labs reviewed: Creat: 1.26; BNP: 122; Trop: 0.00. UA is negative for leucocyte esterase and nitrite. EKG: Personally reviewed by me shows sinus rhythm with no acute ST-T changes.. CT head and CXR negative. A/P: Presyncope: likely due to hypotension, which was Possibly due to medications versus volume depletion from hyperglycemia. IV fluids. Hold antihypertensive. Trend troponins.
[2016-11-11] MEDS ORDERED: *HR* Dextrose 50 % in Water (Syg) 50 ML SYRINGE IVP PRN (00:38)
[2016-11-11] MEDS ORDERED: Dextrose Gel 15 GM PO PRN ×2 (00:38)
[2016-11-11] MEDS ORDERED: D5% in Water 1,000 ML IVC PRN (00:38)
[2016-11-11] MEDS: Ursodiol [Urso Forte] 500 MG PO SCH ×3 (00:45→23:35)
[2016-11-11] MEDS: Magnesium Oxide 400 MG TABLET PO SCH ×3 (00:45→20:06)
[2016-11-11] MEDS: traZODone 50 MG TABLET PO SCH ×2 (00:45→20:06)
[2016-11-11] MEDS: Insulin LISPRO 300 UNITS/3 ML VIAL SQ SCH ×7 (01:14→18:40)
[2016-11-11] MEDS: Insulin DETEMIR 100 UNIT/ML X5UNITS SQ SCH ×3 (01:15→23:07)
[2016-11-11] MEDS: traMADol 50 MG TABLET PO PRN ×3 (02:58→18:40)
[2016-11-11 03:37] LABS: Basophils % 0.4 %; Eosinophils # 0.1 K/mcL (0.0-0.6); Eosinophils % 1.1 %; Hematocrit 34.6 % (35.3-44.9); Hemoglobin 10.8 g/dL (11.5-15.4); Immature Granulocytes % 0.4 % (0-4); Lymphocytes # 2.1 K/mcL (0.6-4.6); Lymphocytes % 37.9 %; Mean Corpuscular HGB Conc 31.2 g/dL (31.6-35.5); Mean Corpuscular Hemoglobin 26.4 pg (28.0-33.3); Mean Corpuscular Volume 84.6 fL (83.0-100.0); Mean Platelet Volume 10.7 fL (9.4-12.4); Monocytes # 0.7 K/mcL (0.0-1.3); Monocytes % 11.6 %; Neutrophils # 2.7 K/mcL (1.6-8.9); Platelet Count 125 K/mcL (140-400); Red Blood Count 4.09 M/mcL (3.82-4.97); Red Cell Distribution Width 17.2 % (11.5-14.5); Segmented Neutrophils % 48.6 %
[2016-11-11 03:50] LABS: Hemoglobin A1C 10.2 %
[2016-11-11 03:52] LABS: BUN/Creatinine Ratio 19 (6-26); Blood Urea Nitrogen 19 mg/dL (7-20); Calcium 9.4 mg/dL (8.6-10.8); Carbon Dioxide 23 mEq/L (19-29); Chloride 105 mEq/L (98-109); Glucose 251 mg/dL (70-99); Magnesium 1.2 mg/dL (1.6-2.6); Osmolality,Calculated 295 (280-300); Potassium 4.2 mEq/L (3.5-4.5); Sodium 137 mEq/L (136-145); eGFR For African Americans > 60 (> 60); eGFR For Non-African Americans 54 (> 60)
[2016-11-11] MEDS: Levothyroxine 25 MCG TABLET PO SCH (05:34)
[2016-11-11] MEDS: Calcium 600-Vit D3 PO SCH (08:05)
[2016-11-11] MEDS: Loratadine 10 MG TABLET PO SCH (08:05)
--- NOTE | 2016-11-11 10:30 | Event Note ---
Date of Encounter: 11/11/16 Time of Encounter: 09:30 Patient seen and examined. On examination, patient sitting upright in bed. Patient can planning of pain to her right shoulder, shoulder blade, tailbone, and complaints of her general arthritis pain. She is requesting pain medication stronger than tramadol. Given that she is here for dizziness and presyncope and not for her chronic pain, no increased her pain medication will be given. Chest x-ray unremarkable and listed nonvisualization of prior pulmonary nodules. Head CT negative. Acute kidney injury improving. Patient currently denies dizziness and states that she only has dizziness if she is active. We will have staff ambulate her and check her gait. She denies recent falls. Markedly lymphedema noted to her bilateral lower extremities. Patient stating this is her baseline. Lasix was stopped when she was seen at [facility] 4 weeks ago for the same complaint. At this point, we are holding her AMANDO inhibitor and her blood pressure remains on the low side of normal. We will continue to trend. Her diabetes is uncontrolled with an A1c of 10.2%. She states at home, she ambulates with a Rollator. Morbid obesity with BMI 49 noted. Patient's main complaint during our conversation is that she wanted more pain medication and wanted stronger medication. Of note, I reviewed her or Rebecca and her most recent prescription for tramadol was in 2013. She has not had a controlled substance prescribed for her since 2013. Suspicion for drug seeking behavior given that she was at [facility] 4 weeks ago and is now coming here. Will observe overnight and likely discharge tomorrow pending clinical outcomes. ITS Impressions Chest X-Ray 11/10/16 17:59 IMPRESSION: 1. Nonvisualization of multiple pulmonary nodules described on the previous chest CT and subsequent PET-CT from 03/25/2014 concerning for underlying malignancy. The lack of visualization of these findings on the current exam are likely due to differences in technique. Unless the patient has had interval treatment and/or follow-up, a follow-up chest CT is suggested to assess for progression. 2. No acute cardiopulmonary process identified. D/ / 11/10/2016 18:35:27 Syed Wallace MD / oscar Interpreting Provider: Syed Wallace MD Head CT 11/10/16 18:21 IMPRESSION: No acute intracranial process identified. D/ / Syed Wallace MD / Syed Wallace MD Interpreting Provider: Syed Wallace MD
[2016-11-11] MEDS ORDERED: Insulin LISPRO 300 UNITS/3 ML VIAL SQ SCH (21:00)
[2016-11-12 03:56] LABS: Basophils % 0.4 %; Eosinophils # 0.1 K/mcL (0.0-0.6); Eosinophils % 1.6 %; Hematocrit 35.1 % (35.3-44.9); Immature Granulocytes % 0.5 % (0-4); Lymphocytes # 2.2 K/mcL (0.6-4.6); Lymphocytes % 39.4 %; Mean Corpuscular HGB Conc 31.3 g/dL (31.6-35.5); Mean Corpuscular Hemoglobin 26.5 pg (28.0-33.3); Mean Corpuscular Volume 84.6 fL (83.0-100.0); Mean Platelet Volume 10.4 fL (9.4-12.4); Monocytes # 0.7 K/mcL (0.0-1.3); Monocytes % 12.6 %; Neutrophils # 2.6 K/mcL (1.6-8.9); Platelet Count 130 K/mcL (140-400); Red Blood Count 4.15 M/mcL (3.82-4.97); Red Cell Distribution Width 17.1 % (11.5-14.5); Segmented Neutrophils % 45.5 %
[2016-11-12 04:11] LABS: BUN/Creatinine Ratio 19 (6-26); Blood Urea Nitrogen 17 mg/dL (7-20); Calcium 9.2 mg/dL (8.6-10.8); Carbon Dioxide 27 mEq/L (19-29); Chloride 104 mEq/L (98-109); Glucose 146 mg/dL (70-99); Magnesium 1.3 mg/dL (1.6-2.6); Osmolality,Calculated 288 (280-300); Potassium 4.5 mEq/L (3.5-4.5); Sodium 137 mEq/L (136-145); eGFR For African Americans > 60 (> 60); eGFR For Non-African Americans > 60 (> 60)
[2016-11-12] MEDS: Levothyroxine 25 MCG TABLET PO SCH (05:37)
[2016-11-12 07:19] VITALS: BP 105/68
[2016-11-12] MEDS: Loratadine 10 MG TABLET PO SCH (07:45)
[2016-11-12] MEDS: Insulin LISPRO 300 UNITS/3 ML VIAL SQ SCH ×4 (07:45→11:20)
[2016-11-12] MEDS: traMADol 50 MG TABLET PO PRN (07:46)
[2016-11-12] MEDS: Calcium 600-Vit D3 PO SCH (07:46)
[2016-11-12] MEDS: Ursodiol [Urso Forte] 500 MG PO SCH (07:46)
[2016-11-12] MEDS: Magnesium Oxide 400 MG TABLET PO SCH (07:46)
[2016-11-12] MEDS: Insulin DETEMIR 100 UNIT/ML X5UNITS SQ SCH (08:04)
--- NOTE | 2016-11-12 11:10 | Discharge Summary ---
Date of Encounter: 11/12/16 Time of Encounter: 09:15 - Discharge Diagnosis (1) Near syncope Priority: Primary Status: Resolved Comments: Patient was slightly dehydrated upon presentation which has since resolved. Antihypertensive medications also adjusted given that she was hypotensive upon arrival. Recommend daily blood pressure checks at home, and following up outpatient. (2) Hypotension Priority: Primary Status: Resolved Comments: Patient was seen by [facility] 4 weeks ago and her Lasix was stopped. During this admission, her AMANDO inhibitor and her Imdur was held as well and will be held upon discharge. Qualifiers: Hypotension type: unspecified hypotension type Qualified Code(s): I95.9 - Hypotension, unspecified (3) Hypertension Priority: Secondary Status: Chronic Qualifiers: Hypertension type: essential hypertension Qualified Code(s): I10 - Essential (primary) hypertension (4) Elephantiasis Priority: Secondary Status: Chronic Comments: Patient denies swelling in her legs greater than her usual. She states that she has an appointment with a lymphedema specialist (5) CHAPARRO (acute kidney injury) Priority: Primary Status: Resolved (6) Abnormal urinalysis Priority: Primary Status: Ruled-out Comments: Urine culture negative. Patient denied dysuria (7) Dehydration Priority: Primary Status: Resolved (8) Type 2 diabetes mellitus Priority: Secondary Status: Chronic Comments: Uncontrolled with an A1c of 10.2%. Follow-up outpatient (9) Hypothyroidism Priority: Secondary Status: Chronic Comments: TSH normal (10) Atrial fibrillation Priority: Secondary Status: Chronic Comments: Rate controlled on sotalol. Non-anticoagulation due to history of nosebleeds. Follow-up outpatient. Qualifiers: Atrial fibrillation type: unspecified Qualified Code(s): I48.91 - Unspecified atrial fibrillation (11) DVT prophylaxis Priority: Primary Status: Acute Comments: Observation patient (12) Morbid obesity with BMI of 45.0-49.9, adult Priority: Secondary Status: Chronic - Discharge Medications Home Medications: Albuterol Neb [Proventil Neb] 2.5 mg IH Q6H PRN 11/10/16 [History] Albuterol Sulfate [Albuterol Inhaler] 1 puff IH Q6H PRN 11/10/16 [History] Calcium Carbonate/Vitamin D3 [Calcium 600-Vit D3 400 Tablet] 1 each PO DAILY [History] Cetirizine HCl [Zyrtec] 10 mg PO DAILY 11/10/16 [History] Insulin ASPART [NovoLOG] 0 unit SQ ACHS 11/10/16 [History] Insulin Degludec [Tresiba Flextouch U-200] 80 unit SQ DAILY 11/10/16 [History] Insulin Glargine,Hum.rec.anlog [Lantus Solostar] 40 unit SQ HS 11/10/16 [History ] Levothyroxine [Synthroid] 25 mcg PO QAM 11/10/16 [History] Magnesium Oxide [Mag-Ox] 400 mg PO BID 11/10/16 [History] Nitroglycerin [Nitrostat] 0.4 mg SL Q5M PRN 11/10/16 [History] Omeprazole [PriLOSEC] 20 mg PO DAILY 11/10/16 [History] Ondansetron HCl [Zofran] 4 mg PO Q8H PRN 11/10/16 [History] Polyethylene Glycol 3350 [Smoothlax] 17 gm PO DAILY PRN 11/10/16 [History] Pravastatin Sodium [Pravachol] 20 mg PO QPM 11/10/16 [History] Sotalol [Betapace] 80 mg PO Q12HR 11/10/16 [History] Trazodone HCl 100 mg PO HS 11/10/16 [History] Triamcinolone Acet 0.1% CRM [Kenalog] 1 appl TP BID 11/10/16 [History] Ursodiol [Radha Forte] 500 mg PO BID 11/10/16 [History] Allergies/Adverse Reactions: Allergies amlodipine [From Norvasc] Allergy (Verified 11/10/16 17:36) Anaphylaxis Amoxicillin Allergy (Verified 11/10/16 17:32) Anaphylaxis Erythromycin Base Allergy (Verified 11/10/16 17:36) Anaphylaxis liraglutide [From Victoza] Allergy (Verified 11/10/16 17:36) Swelling of Lip/Tongue/Throat Penicillins Allergy (Verified 11/10/16 17:32) Anaphylaxis pioglitazone [From Actos] Allergy (Verified 11/10/16 17:36) Anaphylaxis Rosiglitazone [From Avandia] Allergy (Verified 11/10/16 17:36) Swelling of Lip/Tongue/Throat venlafaxine [From Effexor] Allergy (Verified 11/10/16 17:36) Swelling of Lip/Tongue/Throat morphine Adverse Reaction (Verified 11/10/16 17:36) Vomiting sulfamethoxazole [From Bactrim] Adverse Reaction (Verified 11/10/16 17:36) Itching trimethoprim [From Bactrim] Adverse Reaction (Verified 11/10/16 17:36) Itching Date of admission: 11/10/16 21:31 Primary care physician: Camille Joiner MD Discharging clinician: Carrie Pedroza Anticipated date of discharge: 11/12/16 - Patient Status Disposition: Home, Self-Care Condition: Good Functional capacity at discharge: uses cane/walker Overall status at discharge: patient is back to baseline - Discharge Instructions Follow Up With: Camille Joiner MD [Primary Care Provider] - Forms: ED Satisfaction Letter Additional Instructions: Follow-up with primary care provider within one to 2 weeks. Check blood pressure daily and keep a log. Limit sodium and fluid intake. - Diet and Activity Activity: increase activity as tolerated Diet: diabetic diet, low fat, low cholesterol (Fluid restriction 1.5 L per day) , low salt diet Hospital course: Ms. Mcgovern is a 71 year old female with past medical history of hypertension, uncontrolled diabetes, morbid obesity, elefantiasis, atrial fibrillation, GERD, hyperlipidemia. Patient presented to the emergency department with chief complaint of dizziness and presyncopal symptoms. Patient states she developed dizziness on the afternoon of presentation she described as lightheadedness and states she was having episodes where things would go dark and she felt as if she was going to pass out. She denies any actual syncope. Patient stating she has symptoms similar to this approximately 4 weeks prior to presentation when she went to [facility] and was admitted for hypotension and dehydration and her furosemide was stopped at that time. Since her admission 4 weeks ago, patient has complained of generalized weakness but her dizziness and presyncopal symptoms started on the day of presentation. She denied fever, chills, chest pain, shortness of breath, abdominal pain, nausea vomiting or diarrhea. Workup in the emergency department notable for hypotension. Chest x- ray unremarkable for acute processes. Chest x-ray also did not reveal nodules that have been present on prior [id number] outpatient. Head CT unremarkable. Patient was admitted to the hospitalist service for further evaluation and management. Regarding her antihypertensive medications, her AMANDO inhibitor and her Imdur were held and the patient's blood pressure normalized. We will continue to hold these medications upon discharge and have her check her blood pressure daily and follow-up outpatient. Her furosemide was also continued to be held. During this admission the patient's chief complaint was her generalized arthritic pain and she was requesting pain medication stronger than tramadol. Patient stated that she was on tramadol at home however orders report states that she has not had any controlled substances since 2013 prescribed to her. She denies any recent ECF placement. She was dehydrated upon admission and her acute kidney injury resolved and she was able to tolerate a regular diet prior to discharge. She was also ambulated per staff and had an upright and steady gait. Patient stating her symptoms of dizziness had resolved. She returned back to her baseline and she was discharged home in stable condition with close outpatient follow-up recommended. She was instructed to check her blood pressure daily, and keep a log for her primary care provider. ITS Impressions Chest X-Ray 11/10/16 17:59 IMPRESSION: 1. Nonvisualization of multiple pulmonary nodules described on the previous chest CT and subsequent PET-CT from 03/25/2014 concerning for underlying malignancy. The lack of visualization of these findings on the current exam are likely due to differences in technique. Unless the patient has had interval treatment and/or follow-up, a follow-up chest CT is suggested to assess for progression. 2. No acute cardiopulmonary process identified. D/ / 11/10/2016 18:35:27 Syed Wallace MD / oscar Interpreting Provider: Syed Wallace MD Head CT 11/10/16 18:21 IMPRESSION: No acute intracranial process identified. D/ / Syed Wallace MD / Syed Wallace MD Interpreting Provider: Syed Wallace MD - Time Spent with Patient Total time spent providing and/or coordinating discharge services: - Constitutional Vitals: Temp Pulse Resp BP Pulse Ox 98.0 F 63 17 105/68 94 11/12/16 07:15 05/21/17 07:15 11/12/16 07:15 11/12/16 07:15 11/12/16 07:15 General appearance: Present: A&O X 3, morbidly obese, pleasant, no acute distress, answers questions appropriately - Head Head exam: Present: atraumatic, normocephalic - Eye Eye exam: Present: PERRL, conjuntiva pink, sclera anicteric Pupils: Present: PERRL - Neck Neck exam general surgery: Present: supple, trachea midline. Absent: lymphadenopathy - Respiratory Respiratory exam: Present: CTAB. Absent: accessory muscle use, rales, respiratory distress, rhonchi, wheezes - Cardiovascular Cardiovascular exam: Present: RRR, +S1, +S2. Absent: diastolic murmur, gallop, rubs, systolic murmur - GI/Abdominal GI/Abdominal exam: Present: normal bowel sounds, soft, no peritoneal signs. Absent: distended, tenderness - Extremities Exam Extremities exam: Present: pedal edema, warm, radial pulses palpable and symetrical. Absent: calf tenderness, cyanotic - Expanded Lower Extremities Exam Lower Leg exam: Present: swelling Ankle exam: Present: swelling Foot/Toe exam: Present: swelling Neuro vascular tendon exam: Present: no vascular compromise - Neurological Exam Neurological exam: Present: alert, CN II-XII intact, oriented X3, no focal deficits, strengths equal and symetr throughout. Absent: pronater drift, facial droop, speech deficit - Skin Skin exam: Present: dry, intact, normal color, warm - VTE Reasons for not Prescribing Prophylaxis: Treatment not Indicated - Low risk for VTE
--- NOTE | 2016-11-12 19:52 | Electrocardiograph Report ---
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
== END 2016-11-12 12:27 | disposition home or self-care (01) ==
LOC: EMEROO 17:27 → 3BNU 17:27
PROVIDERS: ADMIT Internal Medicine; ATTEND Nurse Practitioner Family